=== PATIENT | male | born 1980 | race Caucasian/White ===

== ENCOUNTER 2017-02-08 15:19 | Emergency (ER) | payer OTHER ==
[~2017-02-08] VITALS: Ht 185.4 cm; Wt 61.8 kg
[~2017-02-08 15:19] MED LIST: ALBUTEROL2.5 MG/3 M IN; CARISOPRODOL350 MG PO; CIPRO500 MG PO; DILAUDID8 MG OR; FLOVENT HFA110 MCG IN; KEFLEX500 MG PO; MEDDOSEPAK OR; MELOXICAM15 MG PO; OXYCODONE HCL30 MG PO; OXYCONTIN60 MG PO; PROAIR HFA IN; SKELAXIN800 MG PO; TEMAZEPAM30 MG; TRAZODONE50 MG PO; ULTRAM50 M1 PO; VALIUM10 MG PO; ZITHROMAX250 MG PO; ZPAK PO
[2017-02-08] MEDS ORDERED: SOMA350 MG PO (15:33)
[2017-02-08 16:47] LABS: HEMATOCRIT 39.7 % (39.0-50.0); HEMOGLOBIN 14.3 g/dl (14.0-18.0); IMMATURE GRANULOCYTES 0.2 % (0.0-1.0); MEAN CELL VOLUME 88.6 fL CALC (80.0-100.0); MEAN CORPUSCULAR HGB 31.9 pG CALC (26.0-32.0); NEUT# 4.05 thou/uL (1.82-7.42); RED BLOOD COUNT 4.48 mill/uL (4.70-6.10); RED CELL DISTRI WIDTH 11.9 % (11.5-15.5)
[2017-02-08 16:48] LABS: URINE BLOOD DIPSTICK TRACE-INTACT (NEGATIVE); URINE CLARITY CLEAR; URINE COLOR YELLOW; URINE GLUCOSE - DIPSTICK NEGATIVE (NEGATIVE); URINE KETONE TRACE mg/dL (NEGATIVE); URINE LEUK ESTERASE NEGATIVE (NEGATIVE); URINE NITRITE - DIPSTICK NEGATIVE (Negative); URINE PH 5.5 (4.5-8.0); URINE PROTEIN - DIPSTICK TRACE mg/dL (NEG-TRACE); URINE SPECIFIC GRAVITY 1.025
[2017-02-08 16:50] LABS: URINE BILIRUBIN - DIPSTICK MODERATE (NEGATIVE)
[2017-02-08 17:03] LABS: ALBUMIN 4.6 g/dL (3.2-5.0); ALKALINE PHOSPHATASE 62 u/l (38-126); AMYLASE 32 u/l (30-110); ANION GAP 16 (6-22 (CALC)); BILIRUBIN, TOTAL 0.5 mg/dL (0.0-1.4); BUN 13 mg/dL (9-20); BUN/CREATININE RATIO 15 (12-20 (CALC)); CALCIUM 9.3 mg/dL (8.4-10.2); CARBON DIOXIDE 26 mmol/l (22-30); CHLORIDE 102 mmol/l (95-108); CREATININE 0.9 mg/dL (0.7-1.3); GFR > 60 ML/MIN (>=60 (CALC)); GFR FOR AFR.AMER. > 60 ML/MIN (>=60 (CALC)); GLUCOSE 118 mg/dL (75-110); LIPASE 33 u/l (23-300); POTASSIUM 3.6 mmol/l (3.5-5.1); SGOT/AST 17 u/l (17-59); SGPT/ALT 24 u/l (21-72); SODIUM 142 mmol/l (137-146); TOTAL PROTEIN 6.7 g/dL (6.3-8.2)
[2017-02-08 17:14] LABS: MYOGLOBIN 35 ng/mL (0 - 121)
[2017-02-08] MEDS ORDERED: CIPROFLOXACN500 MG PO (18:52)
[2017-02-08] MEDS ORDERED: METRONIDAZOL500 MG PO (18:52)
[2017-02-08] MEDS ORDERED: ZOFRAN4 MG/TAB PO (18:52)
[2017-02-08 18:55] VITALS: BP 107/65
== END 2017-02-08 19:05 | disposition home or self-care (01) | DRG 392 ==
LOC: ED 15:19
PROVIDERS: Emergency Medicine
DX: R10.9 Unspecified abdominal pain (principal); R11.2 Nausea with vomiting, unspecified; R19.7 Diarrhea, unspecified
CPT/HCPCS: Q9967

== ENCOUNTER 2018-12-02 13:37 | Emergency (ER) | payer OTHER ==
[~2018-12-02] VITALS: Ht 185.4 cm; Wt 150.0 kg
[~2018-12-02 13:37] MED LIST changes: +CIPROFLOXACN500 MG PO; +METRONIDAZOL500 MG PO; +SOMA350 MG PO; +ZOFRAN4 MG/TAB PO
[2018-12-02] MEDS ORDERED: BACLOFEN10 MG PO (13:53)
[2018-12-02] MEDS ORDERED: RESTORIL15 M1 PO (13:54)
[2018-12-02] MEDS ORDERED: FLEXERIL PO (14:49)
[2018-12-02 14:53] VITALS: BP 129/85
== END 2018-12-02 15:06 | disposition home or self-care (01) | DRG 552 ==
LOC: ED 13:37
DX: S16.1XXA Strain of muscle, fascia and tendon at neck level, initial encounter (principal); V47.0XXA Car driver injured in collision with fixed or stationary object in nontraffic accident, initial encounter; Y92.414 Local residential or business street as the place of occurrence of the external cause